=== PATIENT | male | born 1960 | race Caucasian/White ===

== ENCOUNTER 2016-05-14 12:26 | Emergency (ER) | payer OTHER ==
[~2016-05-14] VITALS: Ht 180.3 cm; Wt 84.0 kg
[~2016-05-14 12:26] MED LIST: PROPRANOLOL; RANI-45 PO
[2016-05-14 12:27] VITALS: Ht 180.3 cm; Wt 84.0 kg
[2016-05-14] MEDS ORDERED: CAPE500T15 PO (12:38)
[2016-05-14] MEDS ORDERED: PROP20TA7 PO (12:38)
--- OUTSIDE RECORDS SUMMARY | 2016-05-14 12:40 | XMS REPORT | Referral Summary ---
Author Author [facility] Organization [facility] Address Unknown Phone Unavailable Care Team Providers Care Prison Warden Name Role Phone Willy Altamirano Primary Care Physician [phone] Encounter VC Date(s): 01/21/15 - 01/21/15 [facility] [address] [place] [address] COTY Pacheco [address] Discharge Disposition: 01-Home or Self Care Attending Physician: Nick Altamirano MD Admitting Physician: Nick Altamirano MD Vital Signs Most recent to 1 oldest [Reference Range]: Blood Pressure 140/90 mmHg [90-140/60-90 mmHg] (01/21/15 2:57 PM) Problem List Condition Effective Dates Status Health Status Informant Abdominal 03/18/11 Active pain/nausea/vomiting /diarrhea(Confirmed) Anxiety state Active (finding)(Confirmed) Elevated blood Active pressure(Confirmed) External Active hemorrhoids(Confirme d) IBS (irritable bowel Active syndrome)(Confirmed) Migraine Active headache(Confirmed) Panic disorder Active without agoraphobia (disorder)(Confirmed ) Essential and other Active specified forms of tremor(Confirmed) Allergies, Adverse Reactions, Alerts Substance Reaction Severity Status penicillin Hives Active Medications Linzess 145 mcg oral capsule 145 mcg 1 caps, Oral, Daily, # 30 caps, 0 Refill(s), samples given to patient ( Rx) Start Date: 01/21/15 Status: Ordered Multiple Vitamins oral tablet 1 tabs, Oral, Daily, # 90 tabs, 0 Refill(s) Start Date: 07/03/14 Status: Ordered Paxil 10 mg oral tablet 10 mg 1 tabs, Oral, Daily, # 90 tabs, 2 Refill(s), [id number], 1 tabs Oral Daily Start Date: 01/21/15 Status: Ordered propranolol 20 mg oral tablet 20 mg 1 tabs, Oral, Daily, X 90 days, # 90 tabs, 2 Refill(s), Pharmacy: [id number], 1 tabs Oral Daily,x90 days Start Date: 01/21/15 Stop Date: 10/18/15 Status: Ordered Results Hematology Most recent to 1 oldest [Reference Range]: WBC [4.8-10.8 8.2 10*3/uL 10*3/uL] (01/21/15 3:34 PM) RBC [4.60-6.20] 3.85 *LOW* (01/21/15 3:34 PM) Hgb [14.0-18.0 9.5 gm/dL gm/dL] *LOW* (01/21/15 3:34 PM) Hct [42.0-52.0 %] 30.9 % *LOW* (01/21/15 3:34 PM) MCV [82.0-99.0 fL] 80.3 fL *LOW* (01/21/15 3:34 PM) MCH [27.0-32.0 pg] 24.7 pg *LOW* (01/21/15 3:34 PM) MCHC [32.0-36.0 30.7 gm/dL gm/dL] *LOW* (01/21/15 3:34 PM) RDW [11.5-14.5 %] 14.7 % *HI* (01/21/15 3:34 PM) Platelet [150-400 603 10*3/uL 10*3/uL] *HI* (01/21/15 3:34 PM) MPV [8.8-14.8 fL] 9.8 fL (01/21/15 3:34 PM) Immature 0.4 % Granulocytes (01/21/15 3:34 PM) [0.0-1.0 %] Neutrophils [51-75 55 % %] (01/21/15 3:34 PM) Lymphocytes [20-46 26 % %] (01/21/15 3:34 PM) Monocytes [4-11 %] 13 % *HI* (01/21/15 3:34 PM) Eosinophils [0-4 %] 6 % *HI* (01/21/15 3:34 PM) Basophils [0-2 %] 1 % (01/21/15 3:34 PM) Neutro Absolute 4.54 10*3 [1.90-7.00 10*3] (01/21/15 3:34 PM) Lymph Absolute 2.10 10*3 [0.80-3.30 10*3] (01/21/15 3:34 PM) [place] Absolute 1.03 10*3 [0.30-1.00 10*3] *HI* (01/21/15 3:34 PM) Eos Absolute 0.45 10*3 [0.00-0.50 10*3] (01/21/15 3:34 PM) Baso Absolute 0.10 10*3 [0.00-0.20 10*3] (01/21/15 3:34 PM) Chemistry Most recent to 1 oldest [Reference Range]: Sodium Lvl [135-144 138 mEq/L mEq/L] (01/21/15 3:34 PM) Potassium Lvl 4.6 mEq/L [3.5-5.2 mEq/L] (01/21/15 3:34 PM) Chloride [99-111 106 mEq/L mEq/L] (01/21/15 3:34 PM) CO2 [23-31 mEq/L] 24 mEq/L (01/21/15 3:34 PM) AGAP [3-20] 8 (01/21/15 3:34 PM) BUN [8-26 mg/dL] 14 mg/dL (01/21/15 3:34 PM) Glucose Lvl [70-99 95 mg/dL mg/dL] (01/21/15 3:34 PM) Creatinine Lvl 0.87 mg/dL [0.72-1.25 mg/dL] (01/21/15 3:34 PM) eGFR [>60 mL/min] >60 mL/min 1 (01/21/15 3:34 PM) Calcium Lvl 9.4 mg/dL [8.9-10.5 mg/dL] (01/21/15 3:34 PM) Albumin Lvl [3.5-5.0 4.0 gm/dL gm/dL] (01/21/15 3:34 PM) Total Protein 7.2 gm/dL [6.4-8.3 gm/dL] (01/21/15 3:34 PM) Globulin [1.8-4.0 3.2 gm/dL gm/dL] (01/21/15 3:34 PM) ALT [0-55 U/L] 8 U/L (01/21/15 3:34 PM) AST [5-34 U/L] 14 U/L (01/21/15 3:34 PM) Alk Phos [40-150 98 U/L U/L] (01/21/15 3:34 PM) Bili Total [0.2-1.2 0.2 mg/dL mg/dL] (01/21/15 3:34 PM) PSA (wihout Reflex 4.6 ng/mL 2 Free) [0.0-3.5 *HI* ng/mL] (01/21/15 3:34 PM) TSH with Reflex Free 1.21 T4 [0.35-4.94] (01/21/15 3:34 PM) 1Result Comment: Multiply eGFR results by 1.21 for race. 2Result Comment: AUA PSA Best Practice Guidelines: Age-Adjusted PSA Values by Ethnic Group Age Range Asians - Caucasians Americans 40-49 0-2.0 0-2.0 0-2.5 50-59 0-3.0 0-4.0 0-3.5 60-69 0-4.0 0-4.5 0-4.5 70-79 0-5.0 0-5.5 0-6.5 Urinalysis Most recent to 1 oldest [Reference Range]: UA Color Yellow (01/21/15 3:30 PM) UA Appear Turbid *ABN* (01/21/15 3:30 PM) UA pH [5.0-8.0] 7.5 (01/21/15 3:30 PM) UA Leuk Est Negative [Negative] (01/21/15 3:30 PM) UA Nitrite Negative [Negative] (01/21/15 3:30 PM) UA Protein Negative [Negative] (01/21/15 3:30 PM) UA Glucose Negative [Negative] (01/21/15 3:30 PM) UA Ketones Negative [Negative] (01/21/15 3:30 PM) UA Urobilinogen 0.2 mg/dL [<1.0 mg/dL] (01/21/15 3:30 PM) UA Bili [Negative] Negative (01/21/15 3:30 PM) UA Blood [Negative] Negative (01/21/15 3:30 PM) UA Spec Grav 1.019 [1.003-1.030] (01/21/15 3:30 PM) Type Voided (01/21/15 3:30 PM) Immunizations Vaccine Date Refusal Reason influenza virus vaccine, live 12/05/11 tetanus-diphth toxoids (Td) adult/adol 07/18/05 Procedures Procedure Date Related Diagnosis Body Site Collection of venous blood by venipuncture 01/21/15 Hospital admission1 03/18/[address] [place] [address] Social History Social History Type Response Smoking Status Never smoker Assessment and Plan Extracted from: Title: Ambulatory Patient Education Author: Nick Altamirano MD Date: Family Medicine Constipation Constipation is when a person: Poops (has a bowel movement) less than 3 times a week. Has a hard time pooping. Has poop that is dry, hard, or bigger than normal. HOME CARE Eat foods with a lot of fiber in them. This includes fruits, vegetables, beans, and whole grains such as brown rice. Avoid fatty foods and foods with a lot of sugar. This includes hungarian fries , hamburgers, cookies, candy, and soda. If you are not getting enough fiber from food, take products with added fiber in them (supplements). Drink enough fluid to keep your pee (urine) clear or pale yellow. Exercise on a regular basis, or as told by your doctor. Go to the restroom when you feel like you need to poop. Do not hold it. Only take medicine as told by your doctor. Do not take medicines that help you poop (laxatives) without talking to your doctor first. GET HELP RIGHT AWAY IF: You have bright red blood in your poop (stool). Your constipation lasts more than 4 days or gets worse. You have belly (abdominal) or butt (rectal) pain. You have thin poop (as thin as a pencil). You lose weight, and it cannot be explained. MAKE SURE YOU: Understand these instructions. Will watch your condition. Will get help right away if you are not doing well or get worse. Document Released: 07/18/2008 Document Revised: 02/04/2014 Document Reviewed: ExitCare Patient Information 2015 [employer]. This information is not intended to replace advice given to you by your health care provider. Make sure you discuss any questions you have with your health care provider. No follow up information was provided. Extracted from: Title: Office Visit Note Author: Nick Altamirano MD Date: 01/21/15 Assessment/Plan Anxiety state (finding) This issue was reviewed, appears stable, and current therapy continued except as mentioned. Appropriate lab was reviewed from the most recent appropriate entry and lab was ordered if needed in the cpoe/nursing orders, and follow up recommended generally in 90 days and no later then six months. Refill paxil. Constipation Trial of linzess 145mg po daily and has worked well for his sister. Samples of the new medication were provided as a courtesy. Side effects were discussed and follow up was recommended. Call in 30 days for refills. Elevated blood pressure This issue was reviewed, appears stable, and current therapy continued except as mentioned. Appropriate lab was reviewed from the most recent appropriate entry and lab was ordered if needed in the cpoe/nursing orders, and follow up recommended generally in 90 days and no later then six months. The patient reports their blood pressure has been stable at home and is not having any significant or related problems. There has been no chest pain, chest pressure, soa/root. Essential and other specified forms of tremor This issue was reviewed, appears stable, and current therapy continued except as mentioned. Appropriate lab was reviewed from the most recent appropriate entry and lab was ordered if needed in the cpoe/nursing orders, and follow up recommended generally in 90 days and no later then six months. Lab pending. External hemorrhoids The patient's issue is nearly or completely resolved. There is no further issues or testing desired by them at this time. Resolved when constipation is stable. HTN (hypertension) See above. Ordered: CBC w/ Differential Comprehensive Metabolic Panel TSH with Reflex Free T4 Urinalysis with Culture if Indicated IBS (irritable bowel syndrome) See above. To GI when interested. Screening PSA (prostate specific antigen) Ordered: Prostate Specific Antigen Orders: linaclotide, 145 mcg 1 caps, Oral, Daily, # 30 caps, 0 Refill(s), samples given to patient (Rx) PARoxetine, 10 mg 1 tabs, Oral, Daily, # 90 tabs, 2 Refill(s), Pharmacy: [facility], 1 tabs Oral Daily propranolol, 20 mg 1 tabs, Oral, Daily, X 90 days, # 90 tabs, 2 Refill(s), Pharmacy: [facility], 1 tabs Oral Daily,x90 days
--- OUTSIDE RECORDS SUMMARY | 2016-05-14 12:40 | XMS REPORT | Referral Summary ---
Author Author [facility] Organization [facility] Address Unknown Phone Unavailable Care Team Providers Care Optical Dispenser Name Role Phone June, N Primary Care Physician [phone] Encounter VC Date(s): 03/13/15 - 03/13/15 [facility] [address] [place] [address] [phone] Discharge Disposition: 01-Home or Self Care Attending Physician: Jessenia Hernandez DO Admitting Physician: Jessenia Hernandez DO Vital Signs Most recent to 1 oldest [Reference Range]: Temperature Tympanic 36.2 degC [36.6-38.1 degC] *LOW* (03/13/15 11:25 AM) Temperature Temporal 36.6 degC Artery [36.3-37.8 (03/13/15 8:14 AM) degC] Peripheral Pulse 95 bpm Rate [60-100 bpm] (03/13/15 12:05 PM) Heart Rate Monitored 97 bpm [60-100 bpm] (03/13/15 12:20 PM) Respiratory Rate 14 br/min [14-20 br/min] (03/13/15 12:20 PM) Blood Pressure 123/79 mmHg [90-140/60-90 mmHg] (03/13/15 12:20 PM) Mean Arterial 88 mmHg Pressure, Cuff (03/13/15 12:20 PM) SpO2 100 % (03/13/15 12:20 PM) Problem List Condition Effective Dates Status Health Status Informant Abdominal 03/18/11 Active pain/nausea/vomiting /diarrhea(Confirmed) Anxiety state Active (finding)(Confirmed) Elevated blood Active pressure(Confirmed) External Active hemorrhoids(Confirme d) IBS (irritable bowel Active syndrome)(Confirmed) Migraine Active headache(Confirmed) Panic disorder Active without agoraphobia (disorder)(Confirmed ) Essential and other Active specified forms of tremor(Confirmed) Allergies, Adverse Reactions, Alerts Substance Reaction Severity Status penicillin Hives Active Medications Multiple Vitamins oral tablet 1 tabs, Oral, Daily, # 90 tabs, 0 Refill(s) Start Date: 07/03/14 Status: Ordered propranolol 20 mg oral tablet 20 mg 1 tabs, Oral, Daily, X 90 days, # 90 tabs, 2 Refill(s), Pharmacy: [id number], 1 tabs Oral Daily,x90 days Start Date: 01/21/15 Stop Date: 10/18/15 Status: Ordered Results Chemistry Most recent to 1 oldest [Reference Range]: Blood Glucose, 88 mg/dL Capillary [70-100 (03/13/15 8:10 AM) mg/dL] Immunizations Vaccine Date Refusal Reason influenza virus vaccine, live 12/05/11 tetanus-diphth toxoids (Td) adult/adol 07/18/05 Procedures Procedure Date Related Diagnosis Body Site Colonoscopy1 03/13/15 Esophagogastroduodenoscopy - SN2 03/13/15 Hospital admission3 03/18/11 1auto-populated from documented surgical case 2auto-populated from documented surgical case 3[facility] Social History Social History Type Response Smoking Status Never smoker Assessment and Plan No data available for this section
--- OUTSIDE RECORDS SUMMARY | 2016-05-14 12:40 | XMS REPORT | Referral Summary ---
Author Author [facility] Organization [facility] Address Unknown Phone Unavailable Care Team Providers Care Humanities Instructor Name Role Phone June, N Primary Care Physician [phone] Encounter VC Date(s): 04/07/15 - 04/07/15 [facility] [address] [place] [address] Discharge Disposition: 01-Home or Self Care Attending Physician: Jessenia Hernandez DO Admitting Physician: Jessenia Hernandez DO Vital Signs Most recent to 1 oldest [Reference Range]: Temperature Skin 36.7 degC [36-37 degC] (04/07/15 4:00 PM) Temperature Temporal 37.0 degC Artery [36.3-37.8 (04/07/15 5:20 PM) degC] Peripheral Pulse 84 bpm Rate [60-100 bpm] (04/07/15 5:20 PM) Heart Rate Monitored 76 bpm [60-100 bpm] (04/07/15 4:00 PM) Respiratory Rate 16 br/min [14-20 br/min] (04/07/15 5:20 PM) Blood Pressure 117/74 mmHg [90-140/60-90 mmHg] (04/07/15 5:20 PM) Mean Arterial 91 mmHg Pressure, Cuff (04/07/15 4:00 PM) SpO2 100 % (04/07/15 5:20 PM) Problem List Condition Effective Dates Status Health Status Informant Abdominal 03/18/11 Active pain/nausea/vomiting /diarrhea(Confirmed) Anxiety state Active (finding)(Confirmed) Elevated blood Active pressure(Confirmed) External Active hemorrhoids(Confirme d) IBS (irritable bowel Active syndrome)(Confirmed) Rectal Active patient cancer(Confirmed) Migraine Active headache(Confirmed) Panic disorder Active without agoraphobia (disorder)(Confirmed ) Essential and other Active specified forms of tremor(Confirmed) Allergies, Adverse Reactions, Alerts Substance Reaction Severity Status penicillin Hives Active Medications Multiple Vitamins oral tablet 1 tabs, Oral, Daily, # 90 tabs, 0 Refill(s) Start Date: 07/03/14 Status: Ordered Percocet 5/325 oral tablet 1 tabs, Oral, q6hr, 0 Refill(s) Start Date: 04/07/15 Status: Ordered propranolol 20 mg oral tablet 20 mg 1 tabs, Oral, Daily, X 90 days, # 90 tabs, 2 Refill(s), Pharmacy: [facility], 1 tabs Oral Daily,x90 days Start Date: 01/21/15 Stop Date: 10/18/15 Status: Ordered Results Hematology Most recent to 1 oldest [Reference Range]: WBC [4.8-10.8 10.1 10*3/uL 10*3/uL] (04/07/15 12:14 PM) RBC [4.60-6.20] 3.29 *LOW* (04/07/15 12:14 PM) Hgb [14.0-18.0 7.1 gm/dL gm/dL] *LOW* (04/07/15 12:14 PM) Hct [42.0-52.0 %] 24.6 % *LOW* (04/07/15 12:14 PM) MCV [82.0-99.0 fL] 74.8 fL *LOW* (04/07/15 12:14 PM) MCH [27.0-32.0 pg] 21.6 pg *LOW* (04/07/15 12:14 PM) MCHC [32.0-36.0 28.9 gm/dL gm/dL] *LOW* (04/07/15 12:14 PM) RDW [11.5-14.5 %] 15.2 % *HI* (04/07/15 12:14 PM) Platelet [150-400 580 10*3/uL 10*3/uL] *HI* (04/07/15 12:14 PM) MPV [9.4-12.3 fL] 8.6 fL *LOW* (04/07/15 12:14 PM) Chemistry Most recent to 1 oldest [Reference Range]: Sodium Lvl [136-144 138 mEq/L mEq/L] (04/07/15 12:14 PM) Potassium Lvl 3.4 mEq/L [3.6-5.1 mEq/L] *LOW* (04/07/15 12:14 PM) Chloride [99-109 105 mEq/L mEq/L] (04/07/15 12:14 PM) CO2 [22-32 mEq/L] 23 mEq/L (04/07/15 12:14 PM) AGAP [3-20] 10 (04/07/15 12:14 PM) BUN [4-20 mg/dL] 9 mg/dL (04/07/15 12:14 PM) Glucose Lvl [70-100 91 mg/dL mg/dL] (04/07/15 12:14 PM) Creatinine Lvl 0.78 mg/dL [0.64-1.27 mg/dL] (04/07/15 12:14 PM) eGFR [>60] >60 1 (04/07/15 12:14 PM) Calcium Lvl 9.3 mg/dL [8.6-10.0 mg/dL] (04/07/15 12:14 PM) Blood Glucose, 89 mg/dL Capillary [70-100 (04/07/15 11:54 AM) mg/dL] 1Result Comment: Multiply eGFR results by 1.21 for race. Immunizations Vaccine Date Refusal Reason influenza virus vaccine, live 12/05/11 tetanus-diphth toxoids (Td) adult/adol 07/18/05 Procedures Procedure Date Related Diagnosis Body Site Insertion Implantable Venous Access Port1 04/07/15 Colonoscopy2 03/13/15 Esophagogastroduodenoscopy - SN3 03/13/15 1auto-populated from documented surgical case 2auto-populated from documented surgical case 3auto-populated from documented surgical case Social History Social History Type Response Smoking Status Never smoker Assessment and Plan No data available for this section
--- OUTSIDE RECORDS SUMMARY | 2016-05-14 12:41 | XMS REPORT | Referral Summary ---
Author Author [facility] Organization [facility] Address Unknown Phone Unavailable Care Team Providers Care Data Engineer Name Role Phone Willy Altamirano Primary Care Physician [phone] Encounter VC Date(s): 01/23/15 - 01/23/15 [facility] [address] [place] [address] COTY Pacheco [id number] Discharge Disposition: 01-Home or Self Care Attending Physician: Nick Altamirano MD Admitting Physician: Nick Altamirano MD Vital Signs Most recent to 1 oldest [Reference Range]: Blood Pressure 140/90 mmHg [90-140/60-90 mmHg] (01/23/15 3:52 PM) Problem List Condition Effective Dates Status [...] Daily, # 90 tabs, 2 Refill(s), [facility], 1 tabs Oral Daily Start Date: 01/21/15 Status: Ordered propranolol 20 mg oral tablet 20 mg 1 tabs, Oral, Daily, X 90 days, # 90 tabs, 2 Refill(s), Pharmacy: [facility], 1 tabs Oral Daily,x90 days Start Date: 01/21/15 Stop Date: 10/18/15 Status: Ordered Results No data available for this section Immunizations Vaccine Date Refusal Reason influenza virus vaccine, live 12/05/11 tetanus-diphth toxoids (Td) adult/adol 07/18/05 Procedures Procedure Date Related Diagnosis Body Site Hospital admission1 03/18/[address] [place] [address] Social History Social History Type Response Smoking Status Never smoker Assessment and Plan Extracted from: Title: Ambulatory Patient Education Author: Nick Altamirano MD Date: Obstetrics and Gynecology Hemorrhoids Hemorrhoids are swollen veins around the rectum or anus. There are two types of hemorrhoids: Internal hemorrhoids. These occur in the veins just inside the rectum. They may poke through to the outside and become irritated and painful. External hemorrhoids. These occur in the veins outside the anus and can be felt as a painful swelling or hard lump near the anus. CAUSES . Obesity. Constipation or diarrhea. Straining to have a bowel movement. Sitting for long periods on the toilet. Heavy lifting or other activity that caused you to strain. Anal intercourse. SYMPTOMS Pain. Anal itching or irritation. Rectal bleeding. Fecal leakage. Anal swelling. One or more lumps around the anus. DIAGNOSIS Your caregiver may be able to diagnose hemorrhoids by visual examination. Other examinations or tests that may be performed include: Examination of the rectal area with a gloved hand (digital rectal exam). Examination of anal canal using a small tube (scope). A blood test if you have lost a significant amount of blood. A test to look inside the colon (sigmoidoscopy or colonoscopy). TREATMENT Most hemorrhoids can be treated at home. However, if symptoms do not seem to be getting better or if you have a lot of rectal bleeding, your caregiver may perform a procedure to help make the hemorrhoids get smaller or remove them completely. Possible treatments include: Placing a rubber band at the base of the hemorrhoid to cut off the circulation (rubber band ligation). Injecting a chemical to shrink the hemorrhoid (sclerotherapy). Using a tool to burn the hemorrhoid (infrared light therapy). Surgically removing the hemorrhoid (hemorrhoidectomy). Stapling the hemorrhoid to block blood flow to the tissue (hemorrhoid stapling). HOME CARE INSTRUCTIONS Eat foods with fiber, such as whole grains, beans, nuts, fruits, and vegetables. Ask your doctor about taking products with added fiber in them ( fibersupplements). Increase fluid intake. Drink enough water and fluids to keep your urine clear or pale yellow. Exercise regularly. Go to the bathroom when you have the urge to have a bowel movement. Do not wait. Avoid straining to have bowel movements. Keep the anal area dry and clean. Use wet toilet paper or moist towelettes after a bowel movement. Medicated creams and suppositories may be used or applied as directed. Only take [id number] or prescription medicines as directed by your caregiver. Take warm sitz baths for 1520 minutes, 34 times a day to ease pain and discomfort. Place ice packs on the hemorrhoids if they are tender and swollen. Using ice packs between sitz baths may be helpful. Put ice in a plastic bag. Place a towel between your skin and the bag. Leave the ice on for 1520 minutes, 34 times a day. Do not use a donut-shaped pillow or sit on the toilet for long periods. This increases blood pooling and pain. SEEK MEDICAL CARE IF: You have increasing pain and swelling that is not controlled by treatment or medicine. You have uncontrolled bleeding. You have difficulty or you are unable to have a bowel movement. You have pain or inflammation outside the area of the hemorrhoids. MAKE SURE YOU: Understand these instructions. Will watch your condition. Will get help right away if you are not doing well or get worse. Document Released: 01/27/2001 Document Revised: 01/16/2013 Document Reviewed: ExitCare Patient Information 2015 [employer]. This information is not intended to replace advice given to you by your health care provider. Make sure you discuss any questions you have with your health care provider. No follow up information was provided. Extracted from: Title: Office Visit Note Author: Nick Altamirano MD Date: 01/23/15 Assessment/Plan Anemia Hemoccults for anemia. Likely warrants an EGD/colonoscopy. To GI/ Surg/RENE/Raffi for evaluation. Elevated blood pressure This issue was reviewed, [...] been no chest pain, chest pressure, soa/root. A work/school note was offered and deferred by the patient. External hemorrhoids Stable.Anemia is to severe to suspect hemorrhoids as a cause at this time. History of IBS The patient's issue is nearly or completely resolved. There is no further issues or testing desired by them at this time. Continue [email or web address].
--- OUTSIDE RECORDS SUMMARY | 2016-05-14 12:41 | XMS REPORT | Continuity of Care Document ---
Author Author [facility] Organization [facility] Address Unknown Phone Unavailable Allergies Active Description Code Type Severity Reaction Onset Reported/Identified Relationship to Patient Clinical Status Yes penicillin NKMA N/A Hives 06/12/2013 Yes penicillin NKMA N/A Hives 06/12/2013 Medications Medication Packaging Start Date Stop Date Route Dosage Sig PARoxetine(PARoxetine 10 mg oral tablet) 12/12/20132013 See Instructions, TAKE ONE TABLET BY MOUTH ONCE DAILY, 30 tabs PARoxetine(PARoxetine 10 mg oral tablet) 1 tabs 01/24/201401/2014 Oral 10 mg 1 tabs, Oral, Daily, 90 tabs PARoxetine(PARoxetine 10 mg oral tablet) 1 tabs 01/24/201408/2014 Oral 10 mg 1 tabs, Oral, Daily, 90 tabs metroNIDAZOLE(Flagyl 500 mg oral tablet) 1 tabs 07/03/2014 Oral 500 mg 500 mg=1 tabs, Oral, q8hr, for 7 days, 21 tabs, 0 Refill(s) PARoxetine(Paxil 10 mg oral tablet) 1 tabs 01/21/20152015 Oral 10 mg 10 mg=1 tabs, Oral, Daily, 90 tabs, 2 Refill(s) linaclotide(Linzess 145 mcg oral capsule) 1 caps 01/21/2015 Oral 145 mcg 145 mcg=1 caps, Oral, Daily, 30 caps, 0 Refill(s) propranolol(propranolol 20 mg oral tablet) 1 tabs 01/21/2015 Oral 20 mg 20 mg=1 tabs, Oral, Daily, for 90 days, 90 tabs, 2 Refill(s) Lactated Ringers Injection(Lactated Ringers Injection 1, 000 mL) 1,000 mL 201503/13/2015 IV 10 mL/hr, IV lidocaine(lidocaine 1% injectable solution) 03/13/20152015 SubCutaneous 1 mL 1 mL, SubCutaneous, Once, PRN: Other (See Comment) HYDROmorphone(Dilaudid) 0.5 mL 03/13/2015 03/13/2015 IV Push 0.5 mg 0.5 mg=0.5 mL, IV Push, q10min, PRN: Pain oxyCODONE-acetaminophen(Percocet 5/325 oral tablet) 1 tabs 04/07/2015 Oral 1 tabs, Oral, q6hr, 0 Refill(s) propranolol(propranolol) 2 tabs 04/07/2015 04/07/2015 Oral 20 mg 20 mg=2 tabs, Oral, Once Lactated Ringers Injection(Lactated Ringers Injection 1, 000 mL) 1,000 mL 201504/07/2015 IV 10 mL/hr, IV midazolam(Versed) 1 mL 04/07/2015 04/07/2015 IV Push 1 mg 1 mg= 1 mL, IV Push, Once famotidine(Pepcid) 2 mL 04/07/2015 04/07/2015 IV Push 20 mg 20 mg =2 mL, IV Push, Once HYDROmorphone(HYDROmorphone) 0.2 mL 04/07/2015 04/07/2015 IV Push 0.2 mg 0.2 mg=0.2 mL, IV Push, q3min, PRN: Pain HYDROmorphone(Dilaudid) 0.5 mL 04/07/2015 04/07/2015 IV Push 0.5 mg 0.5 mg=0.5 mL, IV Push, q5min, PRN: Pain diphenhydrAMINE(diphenhydrAMINE) 1 tabs 04/09/2015 04/09/2015 Oral 25 mg 25 mg=1 tabs, Oral, Once Sodium Chloride 0.9%(Sodium Chloride 0.9% 250 mL) 250 mL 04/09/2015 05/10/2015 IV 20 mL/hr, IV acetaminophen(acetaminophen) 2 tabs 04/09/2015 04/09/2015 Oral 650 mg 650 mg=2 tabs, Oral, Once Problems Date Dx Coded Attending Type Code Diagnosis Diagnosed By 03/17/2015 Jessenia Hernandez DO Final C20 Malignant neoplasm of rectum 03/17/2015 Jessenia Hernandez DO A Final D12.3 Benign neoplasm of transverse colon 03/17/2015 Jessenia Hernandez DO A Reason D50.9 Iron deficiency anemia, unspecified 03/17/2015 Jessenia Hernandez DO A Final K21.9 Gastro-esophageal reflux disease without esophagitis 03/17/2015 Jessenia Hernandez DO A Final K29.50 Unspecified chronic gastritis without bleeding 03/17/2015 Jessenia Hernandez DO A Final K57.30 Diverticulosis of large intestine without perforation or abscess without bl 03/17/2015 Jessenia Hernandez DO Final K63.5 Polyp of colon 04/01/2015 Jessenia Hernandez DO A Reason C20 Malignant neoplasm of rectum 04/01/2015 Jessenia Hernandez DO Final R59.0 Localized enlarged lymph nodes 04/01/2015 Jessenia Hernandez DO Final R91.8 Other nonspecific abnormal finding of lung field 04/08/2015 Miguelito Rowland MD Reason C20 Malignant neoplasm of rectum 04/13/2015 Chay Genao MD Reason C20 Malignant neoplasm of rectum 04/13/2015 Chay Genao MD Final 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 04/16/2015 Jessenia Hernandez DO Reason C20 Malignant neoplasm of rectum 04/16/2015 Jessenia Hernandez DO Final D50.9 Iron deficiency anemia, unspecified 04/16/2015 Jessenia Hernandez DO Final G25.0 Essential tremor 04/16/2015 Jessenia Hernandez DO Final K21.9 Gastro-esophageal reflux disease without esophagitis 04/16/2015 Jessenia Hernandez DO Final K64.1 Second degree hemorrhoids 04/16/2015 Jessenia Hernandez DO Final K64.4 Residual hemorrhoidal skin tags 04/16/2015 Jessenia Hernandez DO Final Z79.899 Other fusing furnace loader (current) drug therapy 08/14/2015 Rowland Jon Reason C20 Malignant neoplasm of rectum 08/14/2015 Rowland Jon Final 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 Visit Date/Time Discharge Status Pt. Type Provider Facility Loc./Unit Complaint [id number] 01/23/2015 15:33:00 2014 23:59:00 DIS Outpatient Nick Altamirano [facility] f/u non lab [id number] 01/24/2014 15:26:00 2013 23:59:00 DIS Outpatient Miguelito Graff [facility] ck to renew meds [id number] 01/21/2015 14:47:00 ACT Outpatient Nick Altamirano [facility] GET EST FROM DR GRAFF. IBS ISSUES [id number] 07/03/2014 08:16:00 Document Registration
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
--- OUTSIDE RECORDS SUMMARY | 2016-05-14 12:41 | XMS REPORT | Referral Summary ---
Author Author [facility] Organization [facility] Address Unknown Phone Unavailable Care Team Providers Care Mechanical Spreader Operator Name Role Phone June, N Primary Care Physician [phone] Encounter VC Date(s): 06/30/15 - 09/17/15 [facility] [address] [place] [address] SU [phone] Final: Malignant neoplasm of rectum Final: Secondary malignant neoplasm of unspecified lung Discharge Disposition: 01-Home or Self Care Attending Physician: Miguelito Rowland MD Admitting Physician: Miguelito Rowland MD Vital Signs No [...] days, # 90 tabs, 2 Refill(s), Pharmacy: [id number], 1 tabs Oral Daily,x90 days Start Date: [...]
--- OUTSIDE RECORDS SUMMARY | 2016-05-14 12:41 | XMS REPORT ---
Author Author Nabil Batista Organization [employer] Address Unknown Phone Unavailable Care Team Providers Care Customer Development Manager Name Role Phone Nabil Batista CP Unavailable Allergies, Adverse Reactions, Alerts Substance Reaction Event Type N.K.D.A. Info Not Available Non Drug Allergy Problems Problem Type Condition Code Onset Dates Condition Status Problem External hemorrhoids K64.4 Active Problem Anemia D64.9 Active Problem BRBPR (bright red blood per rectum) K62.5 Active Assessment Anemia D64.9 Active Assessment BRBPR (bright red blood per rectum) K62.5 Active Assessment External hemorrhoids K64.4 Active Medications Medication Code System Code Instructions Start Date End Date Status Dosage Linzess NDC 1714-3793-17 145 MCG as directed Propanolol NDC 0 10 MG by mouth BID (Twice a day) 1 tablet Procedures Procedure Coding System Code Date OFFICE VISITNEW PT CPT-4 96303 Mar 03, 2015 CBC CPT-4 34734 Mar 03, 2015 Vital Signs Date/Time: Mar 03, 2015 Blood Pressure Systolic 141 mm Hg Height 71 in Weight 185.6 lbs BMI 25.88 Index Blood Pressure Diastolic 82 mm Hg Results No Known Results Summary Purpose [employer] Submission
--- OUTSIDE RECORDS SUMMARY | 2016-05-14 12:41 | XMS REPORT | Referral Summary ---
Author Author [facility] Organization [facility] Address Unknown Phone Unavailable Care Team Providers Care Tactical/Mobile Watch Officer Name Role Phone May, N Primary Care Physician [phone] Encounter VC Date(s): 03/20/15 - 03/20/15 [facility] [address] [place], [place] [address] Discharge Disposition: 01-Home or Self Care Attending Physician: Jessenia Hernandez DO Vital Signs No data available for this [...] days, # 90 tabs, 2 Refill(s), Pharmacy: [id number], 1 tabs Oral Daily,x90 days Start Date: 01/21/15 Stop Date: 10/18/15 Status: Ordered Results Chemistry Most recent to 1 oldest [Reference Range]: Creatinine Lvl 0.67 mg/dL [0.64-1.27 mg/dL] (03/20/15 8:50 AM) eGFR [>60] >60 1 (03/20/15 8:50 AM) CEA [0.0-5.0 ng/mL] 2.1 ng/mL 2 (03/20/15 8:50 AM) 1Result Comment: Multiply eGFR results by 1.21 for race. 2Result Comment: Normal Ranges For CEA; Males: Non Smokers: <3.4 ng/ml Smokers: <6.2 ng/ml Females: Non Smokers: <2.5 ng/ml Smokers: <4.9 ng/ml Immunizations Vaccine Date Refusal Reason influenza virus vaccine, live 12/05/11 tetanus-diphth toxoids (Td) adult/adol 07/18/05 Procedures Procedure Date Related Diagnosis Body Site Collection of venous blood by venipuncture 03/20/15 Colonoscopy1 03/13/15 Esophagogastroduodenoscopy - SN2 03/13/15 Hospital admission3 03/18/11 1auto-populated from documented surgical case 2auto-populated from documented surgical case 3[facility] Social History Social History Type Response Smoking Status Never smoker Assessment and Plan No data available for this section
--- OUTSIDE RECORDS SUMMARY | 2016-05-14 12:41 | XMS REPORT | Referral Summary ---
Author Author [facility] Organization [facility] Address Unknown Phone Unavailable Care Team Providers Care Dental Hygienist Name Role Phone May, N Primary Care Physician [phone] Encounter VC JUSTIN [id number] Date(s): 04/09/15 - 05/09/15 [facility] [address] [place] [address] VW Final: Malignant neoplasm of rectum Final: Anemia in neoplastic disease Discharge Disposition: 01-Home or Self Care Attending Physician: Chay Genao JR, MD Vital Signs No data available for [...] days, # 90 tabs, 2 Refill(s), Pharmacy: [id number], 1 tabs Oral Daily,x90 days Start Date: 01/21/15 Stop Date: 10/18/15 Status: Ordered Results Blood Bank Results Most recent to 1 oldest [Reference Range]: ABO/Rh O POS (04/08/15 2:51 PM) Antibody Screen Tube NEG (04/08/15 2:51 PM) Immunizations Vaccine Date Refusal Reason influenza virus vaccine, live 12/05/11 tetanus-diphth toxoids (Td) adult/adol 07/18/05 Procedures Procedure Date Related Diagnosis Body Site Transfusion, blood or blood components.. 04/09/15 Insertion Implantable Venous Access Port1 04/07/15 Colonoscopy2 03/13/15 Esophagogastroduodenoscopy - SN3 03/13/15 1auto-populated from documented surgical case 2auto-populated from documented surgical case 3auto-populated from documented surgical case Social History Social History Type Response Smoking Status Never smoker Assessment and Plan No data available for this section
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
--- NOTE | 2016-05-14 12:44 | NUR ---
PROVIDER DR BECKFORD IN TO SEE PATIENT.
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
[2016-05-14] MEDS ORDERED: NORMAL SALINE 1,000 ML IV ONE (12:51)
[2016-05-14 13:21] LABS: BASOPHILS % (AUTO) 0.3 % (0-2); EOSINOPHILS # (AUTO) 0.1 T/MM3 (0-0.5); EOSINOPHILS % (AUTO) 1.1 % (0-4); HCT - HEMATOCRIT 41.9 % (41-53); HGB - HEMOGLOBIN 13.7 GM/DL (13.5-17.5); IMMATURE GRANULOCYTE # (AUTO) 0.04 T/MM3 (0.00-0.03); IMMATURE GRANULOCYTE % (AUTO) 0.4 % (0.0-0.5); LYMPHOCYTES # (AUTO) 0.9 T/MM3 (1-4.8); LYMPHOCYTES % (AUTO) 10.3 % (23-45); MEAN CORPUSCULAR HGB 32.2 UUG (26-34); MEAN CORPUSCULAR HGB CONC(MCHC 32.7 GM/DL (31-37); MEAN CORPUSCULAR VOLUME 98.4 UM3 (80-100); MEAN PLATELET VOLUME 9.7 UM3 (9.4-12.4); MONOCYTES # (AUTO) 0.7 T/MM3 (0-0.8); MONOCYTES % (AUTO) 7.5 % (0-9.0); NEUTROPHILS #(AUTO)-ABSOLUTE 7.2 T/MM3 (1.8-7.7); NEUTROPHILS % (AUTO) 80.4 % (33-66); RED BLOOD COUNT 4.26 M/MM3 (4.50-5.90)
--- OUTSIDE RECORDS SUMMARY | 2016-05-14 13:25 | XMS REPORT | Continuity of Care Document ---
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 Visit Date/Time Discharge Status Pt. Type Provider Facility Loc./Unit Complaint [id number] 01/23/2015 15:33:00 2014 23:59:00 DIS Outpatient Nick Altamirano [facility] f/u non lab [id number] 01/24/2014 15:26:00 2013 23:59:00 DIS Outpatient Miguelito Graff [facility] ck to renew meds [id number] 01/21/2015 14:47:00 ACT Outpatient Nick Altamirano [facility] GET EST FROM DR GRAFF. IBS ISSUES [id number] 07/03/2014 08:16:00 Document Registration
[2016-05-14 13:31] LABS: ALBUMIN 4.2 G/DL (3.5-5.0); ALBUMIN/GLOBULIN RATIO 1.2 RATIO (1.1-2.2); ALKALINE PHOSPHATASE 133 U/L (38-126); ALT (SGPT) 27 U/L (21-72); ANION GAP 17 MEQ/L (5-15); AST (SGOT) 36 U/L (17-59); BUN/CREATININE RATIO 17 RATIO (6-26); CALCIUM 9.5 MG/DL (8.4-10.2); CHLORIDE 106 MEQ/L (98-107); CO2 - CARBON DIOXIDE 23 MEQ/L (22-30); CREATININE 0.6 MG/DL (0.8-1.5); GLOMERULAR FILTRATION RATE 139; GLUCOSE 106 MG/DL (75-110); POTASSIUM 3.8 MEQ/L (3.6-5); SODIUM 146 MEQ/L (134-144); TOTAL PROTEIN 7.7 G/DL (6.3-8.2)
[2016-05-14 13:54] LABS: C-REACTIVE PROTEIN 9.1 MG/L (0-9)
[2016-05-14 14:09] LABS: PROLACTIN 33.9 NG/ML
--- NOTE | 2016-05-14 14:31 | NUR ---
BACK FROM XRAY
[2016-05-14] MEDS ORDERED: SALINE FLUSH 10ml SYRINGE ONE (15:24)
[2016-05-14] MEDS ORDERED: IOHEXOL 350 MG/ML 75ml INJECTION ONE (15:24)
[2016-05-14] MEDS ORDERED: NORMAL SALINE 100 ML ONE (15:24)
--- NOTE | 2016-05-14 15:32 | NUR ---
TO CT PER CART.
--- NOTE | 2016-05-14 15:50 | NUR ---
BACK FROM CT
[2016-05-14] MEDS ORDERED: ESCI10TA PO (16:46)
[2016-05-14 16:55] VITALS: BP 124/72; PULSE 109; RESP 16; TEMP 98.7; O2SAT 96
--- NOTE | 2016-05-15 09:25 | DI ---
Indication: ITS.REASON: syncope, dyspnea, elevated ddimer history of rectal cancer with pulmonary metastases. PROCEDURE: CTA PULMONARY EMBOLI: Encounter: Initial Comparison: None Technique: Axial CT pulmonary angiographic phase images were performed through the chest after the administration of intravenous contrast. Coronal and Sagittal MIP reconstructed images were created and reviewed. Automated Exposure Control and Iterative Reconstruction dose reducing techniques were utilized. Contrast: Omnipaque 350 60 mL Findings: Pulmonary arteries: The exam is diagnostic to the subsegmental pulmonary arterial level. No filling defects identified to confirm a pulmonary embolus. Other findings: Numerous pulmonary nodules with a random distribution seen throughout both lungs. A practice representative spiculated nodule in the right lower lobe on image #29 measures 1.6 cm in diameter. Many other nodules ranging from 3 to 12 mm in size. No pleural effusion or pneumothorax. The central airways are patent. No axillary or mediastinal adenopathy. Heart size is normal. No pericardial effusion. Right-sided internal jugular port catheter in place. The upper abdomen shows no acute findings. Bone windows are unremarkable. Impression: 1. No pulmonary embolus. 2. Diffuse pulmonary metastatic disease compatible with the provided medical history. There is a preliminary report by [employer]. .
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
== END 2016-05-14 16:55 | disposition home or self-care (01) ==
LOC: ED 12:26
DX: R55 Syncope and collapse (principal); R79.89 Other specified abnormal findings of blood chemistry; V48.0XXA Car driver injured in noncollision transport accident in nontraffic accident, initial encounter; Y93.89 Activity, other specified; Y92.410 Unspecified street and highway as the place of occurrence of the external cause; Y99.8 Other external cause status
CPT/HCPCS: 70450; 71020; 71275; 80053; 82948; 84146; 84484; 85025; 85379; 86140; 93005; 96360; 99284; J7030; J7050; Q9967